=== PATIENT | male | born 1975 | race Hispanic/Latino ===

== ENCOUNTER → 2017-01-20 | Outpatient (CLI) | payer SELFPAY ==
[~2017-01-20] MED LIST: ACET-93 PO; AMOX-358 PO; CIPR-225 PO; CYCL10TA9 PO; FLUC100T PO; HYDR-3730 PO; HYDR-3816 PO; LEVO750T9 PO; METF-478 PO; METF500T8 PO; METR500T PO; PRD20T PO; SENN-75 PO
[2017-01-20] MEDS: CATHETER FLUSH 10 ML SYR IV PRN (17:53)
[2017-01-20] MEDS: IOHEXOL 350 MG/ML 100 ML (OMNIPAQUE 350) VIAL IV ONE (17:53)
[2017-01-20] MEDS: NS 100 ML (IVPB) BAG IV ONE (17:53)
--- NOTE | 2017-01-20 18:20 | Diagnostic Imaging Report ---
PROCEDURE: CT head with and without contrast. TECHNIQUE: Multiple contiguous axial images were obtained through the brain before and after the administration of intravenous contrast. INDICATION: Right facial paresthesia and headache. FINDINGS: Ventricles and sulci are within normal limits for size. There is no evidence of hemorrhage. No abnormal mass effect or shift of midline structures is seen. There is no CT evidence of infarct. Calvarium is intact and the visualized paranasal sinuses are clear. IMPRESSION: Unremarkable CT scan of the head. Dictated by: Dictated on workstation # [id number]
== END ==
LOC: RAD 16:37
PROVIDERS: ATTEND Nurse Practitioner Family
DX: R51 Headache (principal)
CPT/HCPCS: 70470

== ENCOUNTER 2018-06-16 15:56 | Emergency (ER) | payer SELFPAY ==
[~2018-06-16] VITALS: Ht 152.4 cm; Wt 74.8 kg
[~2018-06-16 15:56] MED LIST changes: +HYDR-34 PO; -HYDR-3816 PO
[2018-06-16] MEDS ORDERED: LIDOCAINE 1% INJ 20 ML 20 ML VIAL INJ ONE (17:00)
--- NOTE | 2018-06-16 17:08 | ED General ---
General Chief Complaint: General Problems/Pain Stated Complaint: STOMACH PAIN/POSS SUTURE LEFT FROM PREV SURGERY Nursing Triage Note: ARRIVED VIA AMB TO ROOM 06. STATES TWO YEARS AGO HE HAD SURGERY WITH DR CARSON AND HE THINKS HE HAS A SUTURE COMING OUT AND WANTS IT SEEN. Nursing Sepsis Screen: No Definite Risk Source of Information: Patient Exam Limitations: No Limitations History of Present Illness Date Seen by Provider: Jun 16, 2018 Allergies and Home Medications Allergies Coded Allergies: No Known Drug Allergies (Verified , 02/12/16) Home Medications Sulfamethoxazole/Trimethoprim 1 Each Tablet, 1 EACH PO BID Prescribed by: SHAHRAM RIOS on 06/16/18 193 Past Vxofzqn-[id number]-[id number] Hx Patient Social History Alcohol Use: Denies Use Recreational Drug Use: No 2nd Hand Smoke Exposure: No Recent Foreign Travel: No Contact w/Someone Who Travel: No Recent Infectious Disease Expo: No Seasonal Allergies Seasonal Allergies: No Past Medical History Surgeries: Yes (BOWEL) Abdominal, Bowel Surgery Respiratory: No Cardiac: No Neurological: No Reproductive Disorders: No Sexually Transmitted Disease: No HIV/AIDS: No Gastrointestinal: Yes (pericolonic abscess, sigmoid diverticular) Musculoskeletal: No Endocrine: No (? diabetes, was started on Metformin during hospitalization 2015,not taki) Cancer: No Psychosocial: No Integumentary: Yes (LEFT TOP OF HEAD lesion) Blood Disorders: No Adverse Reaction/Blood Tranf: No Family Medical History Congenital disease DAUGHTER No Pertinent Family Hx Physical Exam Vital Signs Vital Signs - First Documented 06/16/18 16:05 Temp 98.0 Pulse 78 Resp 16 B/P (MAP) 142/93 (109) Pulse Ox 98 O2 Delivery Room Air Capillary Refill : Less Than 3 Seconds Height, Weight, BMI Height: 5'5.00" Weight: 165lbs. 0.0oz. 74.850858tf; 27.0 BMI Method:Stated Progress/Results/Core Measures Suspected Sepsis Recent Fever Within 48 Hours: No Infection Criteria Present: None New/Unexplained Altered Menta: No Sepsis Screen: No Definite Risk SIRS Temperature:98.0 Pulse: 78 Respiratory Rate: 16 Blood Pressure 142 /93 Mean: 109 Results/Orders My Orders Orders - SHAHRAM RIOS Wound Culture (06/16/18 16:56) Lidocaine 1% Inj 20 Ml (Xylocaine 1% Inj (06/16/18 17:00) Lidocaine/Epi 1% 1:100,000 (Xylocaine /E (06/16/18 19:15) Lidocaine/Epi 2% 1:100,000 (Xylocaine/Ep (06/16/18 19:09) Medications Given in ED Current Medications Medications Dose Ordered Sig/Gloria Route Start Time Stop Time Status Last Admin Dose Admin Lidocaine HCl 20 ml ONCE ONCE INJ 06/16/18 17:00 06/16/18 17:01 DC 06/16/18 17:20 20 ML Lidocaine/ Epinephrine 20 ml ONCE ONCE INJ 06/16/18 19:15 06/16/18 19:16 DC 06/16/18 19:30 20 ML Vital Signs/I&O 06/16/18 06/16/18 16:05 19:41 Temp 98.0 98.0 Pulse 78 78 Resp 16 16 B/P (MAP) 142/93 (109) 142/93 (109) Pulse Ox 98 98 O2 Delivery Room Air Capillary Refill : Less Than 3 Seconds Blood Pressure Mean: 109 Departure Impression Primary Impression: Foreign body in soft tissue Disposition: HOME, SELF-CARE Condition: Improved Departure-Patient Inst. Decision time for Depature: 19:32 Referrals: [facility] (PCP/Family) Primary Care Physician Patient Instructions: Laceration Repair With Glue (DC) Add. Discharge Instructions: All discharge instructions reviewed with patient and/or family. Voiced understanding. Medications as instructed. Tylenol extra strength over-the- counter as directed for pain. Ibuprofen 800 mg by mouth every 8 hours as needed for pain. You may shower tomorrow morning with antibacterial soap. Pat dry. Avoid scrubbing the glue. Sutures will dissolve. Follow-up with your primary care provider for recheck if needed. Return to the emergency department for worsened symptoms or any other concerns. Scripts Sulfamethoxazole/Trimethoprim (Bactrim Ds Tablet) 1 Each Tablet 1 EACH PO BID, #14 TAB 0 Refills Prov: SHAHRAM RIOS 06/16/18 Work/School Note: Work Release Form Date Seen in the Emergency Department: Jun 16, 2018 Return to Work: Jun 18, 2018 Restrictions: No Restrictions SHAHRAM RIOS Jun 16, 2018 17:08
[2018-06-16] MEDS ORDERED: LIDOCAINE/EPI 2% 1:100,00 (XYLOCAINE) 20 ML VIAL ONE (19:09)
[2018-06-16] MEDS ORDERED: LIDOCAINE/EPI 1%-1:100,000 (XYLOCAINE) 20ML INJ ONE (19:15)
[2018-06-16] MEDS ORDERED: SULF1TAB35 PO (19:34)
[2018-06-16 19:41] VITALS: BP 142/93
== END 2018-06-16 19:45 | disposition home or self-care (01) ==
LOC: EDUNIT# 15:56 → ER 15:58
DX: S30.851A Superficial foreign body of abdominal wall, initial encounter (principal); Z98.890 Other specified postprocedural states; Z87.19 Personal history of other diseases of the digestive system; X58.XXXA Exposure to other specified factors, initial encounter
CPT/HCPCS: 87070; 87077; 87186; 87205